=== PATIENT | female | born 1975 | race Asian ===

== ENCOUNTER 2017-11-07 03:04 | Emergency (ER) | payer MEDICAID ==
[2017-11-07] MEDS ORDERED: PREN-59 PO (05:02)
== END 2017-11-07 03:46 | disposition home or self-care (01) ==
LOC: ED 03:30
DX: O26.892 Other specified pregnancy related conditions, second trimester (principal); Z3A.20 20 weeks gestation of pregnancy; R10.10 Upper abdominal pain, unspecified; Z90.49 Acquired absence of other specified parts of digestive tract
CPT/HCPCS: 99283

== ENCOUNTER 2017-11-07 03:33 | Outpatient (CLI) | payer MEDICAID ==
[~2017-11-07] VITALS: Ht 154.9 cm; Wt 46.4 kg
[2017-11-07 04:25] LABS: MEAN CORPUSCULAR HEMOGLOBIN 27.7 pg (27.0-34.8); MEAN CORPUSCULAR HGB CONC 33.3 g/dL (32.4-35.8); MEAN CORPUSCULAR VOLUME 83.2 fL (80-100); MEAN PLATELET VOLUME 7.5 fL (7.4-10.4); PLATELET COUNT 464 x10^3/uL (130-400); RED BLOOD COUNT 4.28 x10^6/uL (3.82-5.3); RED CELL DISTRIBUTION WIDTH 16.6 % (9.6-15.2)
[2017-11-07 04:34] LABS: ALANINE AMINOTRANSFERASE 19 U/L (12-78); ALBUMIN 2.4 g/dL (3.4-5.0); ANION GAP 7 mmol/L (5-15); CALCIUM 8.9 mg/dL (8.5-10.1); CHLORIDE 109 mmol/L (98-107); CREATININE 0.64 mg/dL (0.55-1.02)
[2017-11-07 04:36] LABS: ALKALINE PHOSPHATASE 101 U/L (45-117); BILIRUBIN,TOTAL 0.2 mg/dL (0.2-1.0); TOTAL PROTEIN 6.3 g/dL (6.4-8.2)
[2017-11-07 04:40] LABS: BILIRUBIN, DIRECT < 0.1 mg/dL (0.1-0.2)
[2017-11-07 05:01] LABS: MICROSCOPIC INDICATED
[2017-11-07] MEDS ORDERED: PREN-59 PO (05:02)
[2017-11-07 05:14] LABS: AMPHETAMINE SCREEN, URINE Positive (Negative); BARBITURATE SCREEN, URINE Negative (Negative); BENZODIAZEPINE SCREEN, URINE Negative (Negative); CANNABINOID SCREEN, URINE Negative (Negative); COCAINE SCREEN, URINE Negative (Negative); METHADONE SCREEN, URINE Negative (Negative); OPIATE SCREEN, URINE Negative (Negative)
== END 2017-11-07 05:45 | disposition home or self-care (01) ==
LOC: LDOP 03:33
PROVIDERS: ATTEND Obstetrics & Gynecology
DX: O42.913 Preterm premature rupture of membranes, unspecified as to length of time between rupture and onset of labor, third trimester (principal); Z3A.00 Weeks of gestation of pregnancy not specified
CPT/HCPCS: 36415; 59025; 76805; 80053; 80307; 81001; 82248; 84550; 85027; 86592; 86762; 86850; 86900; 87086; 87340; 87491; 87591; 87806; 89060; 99211; G0463; G0475; Q0114

== ENCOUNTER 2018-04-10 00:34 | Emergency (ER) | payer MEDICAID ==
[~2018-04-10] VITALS: Ht 149.9 cm; Wt 45.0 kg
[~2018-04-10 00:34] MED LIST: NIFE10CA49 PO; PREN-59 PO
[2018-04-10] MEDS ORDERED: LIDOCAINE-MPF 1%, 5ML ONE (00:51)
[2018-04-10] MEDS ORDERED: LIDOCAINE-MPF 1%, 5ML INFIL ONE (01:00)
[2018-04-10] MEDS ORDERED: BACITRACIN ZINC OINT 500U/GM, 0.9 GM ONE (01:18)
[2018-04-10] MEDS ORDERED: HYDROcodone/APAP 5/325 TABLET ONE (01:49)
[2018-04-10 01:57] VITALS: BP 139/84
[2018-04-10] MEDS ORDERED: HYDROcodone/APAP 5/325 TABLET PO ONE (02:00)
== END 2018-04-10 02:00 | disposition home or self-care (01) ==
LOC: ED 00:44
DX: L03.114 Cellulitis of left upper limb (principal); L03.012 Cellulitis of left finger; Z90.49 Acquired absence of other specified parts of digestive tract; F17.200 Nicotine dependence, unspecified, uncomplicated
CPT/HCPCS: 10060; 99283